=== PATIENT | female | born 1955 | race Caucasian/White ===

== ENCOUNTER → 2016-12-15 | Outpatient (CLI) | payer OTHER ==
[~2016-12-15] MED LIST: CALC1TAB PO; GLUC1TAB21 PO; LISI-167 PO; OMEP-110 PO; RISE30TA PO; VENL75TA PO
== END | disposition home or self-care (01) ==
LOC: CFH 08:46
PROVIDERS: ATTEND Physician Assistant
DX: K74.69 Other cirrhosis of liver (principal)
CPT/HCPCS: 76705

== ENCOUNTER → 2017-06-29 | Outpatient (CLI) | payer OTHER | END | disposition home or self-care (01) | LOC: RAD 07:23 | PROVIDERS: ATTEND Physician Assistant | DX: K74.69 Other cirrhosis of liver (principal) | CPT/HCPCS: 76705 ==

== ENCOUNTER → 2017-09-26 | Outpatient (CLI) | payer OTHER ==
[~2017-09-26] MED LIST changes: +GADOXETATE DISODIUM 2.5 MMOL/10 ML ONE
== END | disposition home or self-care (01) ==
LOC: CFH 09:28
PROVIDERS: ATTEND Physician Assistant
DX: I85.00 Esophageal varices without bleeding (principal); K74.69 Other cirrhosis of liver; N28.89 Other specified disorders of kidney and ureter; R16.1 Splenomegaly, not elsewhere classified
CPT/HCPCS: 74183; A9581

== ENCOUNTER 2017-11-11 21:54 | Inpatient (IN) | payer OTHER ==
[~2017-11-11] VITALS: Ht 172.7 cm; Wt 108.8 kg
[~2017-11-11 21:54] MED LIST changes: -GADOXETATE DISODIUM 2.5 MMOL/10 ML ONE
[2017-11-11 23:09] LABS: ALANINE AMINOTRANSFERASE 54 U/L (12-78); ALBUMIN 1.4 g/dL (3.4-5.0); ANION GAP 6 mmol/L (5-15); CALCIUM 8.2 mg/dL (8.5-10.1); CHLORIDE 104 mmol/L (98-107); CREATININE 1.36 mg/dL (0.55-1.02)
[2017-11-11 23:11] LABS: ALKALINE PHOSPHATASE 237 U/L (45-117); BILIRUBIN,TOTAL 7.6 mg/dL (0.2-1.0); TOTAL PROTEIN 6.1 g/dL (6.4-8.2)
[2017-11-11 23:15] LABS: INTERNATIONAL NORMALIZED RATIO 1.68 (0.93-1.1); PROTHROMBIN TIME 17.3 Seconds (9.6-11.5)
[2017-11-11 23:26] LABS: BASOPHILS # (AUTO) 0.05 x10^3/uL (0-0.1); BASOPHILS % (AUTO) 1 % (0-1); EOSINOPHILS # (AUTO) 0.06 x10^3/uL (0-0.4); EOSINOPHILS % (AUTO) 2 % (1-7); LYMPHOCYTES # (AUTO) 0.51 x10^3/uL (1-3.4); LYMPHOCYTES % (AUTO) 13 % (22-44); MD SCAN; MEAN CORPUSCULAR HEMOGLOBIN 32.4 pg (27.0-34.8); MEAN CORPUSCULAR HGB CONC 34.2 g/dL (32.4-35.8); MEAN CORPUSCULAR VOLUME 94.9 fL (80-100); MEAN PLATELET VOLUME 7.9 fL (7.4-10.4); MONOCYTES # (AUTO) 0.27 x10^3/uL (0.2-0.8); MONOCYTES % (AUTO) 7 % (2-9); NEUTROPHILS # (AUTO) 3.17 x10^3/uL (1.8-6.8); NEUTROPHILS % (AUTO) 78 % (42-75); PLATELET COUNT 168 x10^3/uL (130-400); RED BLOOD COUNT 3.44 x10^6/uL (3.82-5.3); RED CELL DISTRIBUTION WIDTH 19.3 % (9.6-15.2)
[2017-11-12] MEDS ORDERED: OMNIPAQUE 350 MG/ML, 100ML BOTTLE ONE (00:10)
[2017-11-12] MEDS: SODIUM CHLORIDE 0.9% 1,000 ML IV SCH ×2 (00:42→15:13)
[2017-11-12] MEDS ORDERED: LEVO25TA4 PO (00:48)
[2017-11-12] MEDS ORDERED: FURO-93 PO (00:48)
[2017-11-12] MEDS ORDERED: IRON15TA3 PO (00:48)
[2017-11-12] MEDS ORDERED: BISACODYL 10 MG SUPP PR PRN (01:00)
[2017-11-12] MEDS ORDERED: RISEDRONATE 30 MG PO SCH (01:00)
[2017-11-12] MEDS ORDERED: ONDANSETRON 2MG/ML, 2ML IVPush PRN (01:00)
[2017-11-12] MEDS ORDERED: POLYETHYLENE GLYCOL 17 GM PACKET PO PRN (01:00)
[2017-11-12 01:20] VITALS: BP 106/74
[2017-11-12] MEDS ORDERED: MORPHINE SULFATE 4 MG/ML, 1ML IVPush PRN (02:00)
[2017-11-12] MEDS ORDERED: OXYcodone IR 5MG TABLET PO PRN (02:00)
[2017-11-12 05:45] LABS: ALBUMIN 1.3 g/dL (3.4-5.0); ANION GAP 7 mmol/L (5-15); CALCIUM 7.9 mg/dL (8.5-10.1); CHLORIDE 105 mmol/L (98-107)
[2017-11-12 05:49] LABS: ALANINE AMINOTRANSFERASE 51 U/L (12-78); ALKALINE PHOSPHATASE 226 U/L (45-117); BILIRUBIN,TOTAL 6.9 mg/dL (0.2-1.0); TOTAL PROTEIN 5.4 g/dL (6.4-8.2)
[2017-11-12 06:14] LABS: MD YES; MEAN CORPUSCULAR HEMOGLOBIN 32.9 pg (27.0-34.8); MEAN CORPUSCULAR HGB CONC 34.1 g/dL (32.4-35.8); MEAN CORPUSCULAR VOLUME 96.7 fL (80-100); MEAN PLATELET VOLUME 7.9 fL (7.4-10.4); PLATELET COUNT 162 x10^3/uL (130-400); RED BLOOD COUNT 3.41 x10^6/uL (3.82-5.3); RED CELL DISTRIBUTION WIDTH 19.2 % (9.6-15.2)
[2017-11-12 06:24] LABS: LYMPH#(MANUAL) 0.16 x10^3/uL (1-3.4); LYMPHS% (MANUAL) 4 % (22-44); MONOS#(MANUAL) 0.08 x10^3/uL (0.3-2.7); MONOS% (MANUAL) 2 % (2-9); SEG#(MANUAL) 3.85 x10^3/uL (1.8-6.8); SEGS% (MANUAL) 94 % (42-75)
[2017-11-12 06:26] LABS: <PLATELET ESTIMATE> ADEQUATE; <PLT MORPHOLOGY> NORMAL PLT MORPH; <RBC MORPHOLOGY> NORMAL
[2017-11-12 07:17] VITALS: BP 96/57
[2017-11-12] MEDS: RISEDRONATE MC SCH ×2 (08:00→15:59)
[2017-11-12] MEDS: OMEPRAZOLE 20 MG CAPSULE.DR PO SCH (08:27)
[2017-11-12] MEDS: CALCIUM/VITAMIN D3 250-125 TABLET PO SCH (08:28)
[2017-11-12] MEDS: LISINOPRIL 10 MG TABLET PO SCH ×2 (08:28→08:41)
[2017-11-12] MEDS: SENNA/DOCUSATE TABLET PO SCH (08:29)
[2017-11-12] MEDS ORDERED: VENLAFAXINE 75MG TABLET PO SCH (09:00)
[2017-11-12 14:30] VITALS: BP 105/63
[2017-11-12 18:40] VITALS: BP 100/71
[2017-11-13 01:52] VITALS: BP 99/66
[2017-11-13] MEDS: SODIUM CHLORIDE 0.9% 1,000 ML IV SCH (03:12)
[2017-11-13 03:48] LABS: ALBUMIN 1.3 g/dL (3.4-5.0); ANION GAP 6 mmol/L (5-15); CALCIUM 7.6 mg/dL (8.5-10.1); CHLORIDE 103 mmol/L (98-107)
[2017-11-13 03:51] LABS: ALANINE AMINOTRANSFERASE 47 U/L (12-78); ALKALINE PHOSPHATASE 131 U/L (45-117); BILIRUBIN,TOTAL 8.3 mg/dL (0.2-1.0); TOTAL PROTEIN 5.2 g/dL (6.4-8.2)
[2017-11-13 08:24] VITALS: BP 103/67
[2017-11-13] MEDS: CALCIUM/VITAMIN D3 250-125 TABLET PO SCH (08:40)
[2017-11-13] MEDS: OMEPRAZOLE 20 MG CAPSULE.DR PO SCH (08:40)
[2017-11-13] MEDS: SENNA/DOCUSATE TABLET PO SCH (08:41)
[2017-11-13] MEDS: VENLAFAXINE 75MG TABLET PO SCH (08:43)
[2017-11-13 11:45] LABS: INTERNATIONAL NORMALIZED RATIO 1.7 (0.93-1.1); PROTHROMBIN TIME 17.3 Seconds (9.6-11.5)
[2017-11-13 13:52] VITALS: BP 103/71
[2017-11-13 14:24] LABS: ALBUMIN 1.3 g/dL (3.4-5.0); ANION GAP 9 mmol/L (5-15); CALCIUM 7.7 mg/dL (8.5-10.1); CHLORIDE 102 mmol/L (98-107); CREATININE 1.28 mg/dL (0.55-1.02)
[2017-11-13] MEDS ORDERED: SODIUM BICARBONATE 8.4% 75 MEQ in DEXTROSE 5% 1,000 ML IV SCH (15:30)
[2017-11-13 20:20] VITALS: BP 98/67
[2017-11-13 23:48] LABS: CULTURE INDICATED? YES; MICROSCOPIC INDICATED
[2017-11-13 23:49] LABS: POTASSIUM,URINE RANDOM 33 mmol/L; SODIUM,URINE RANDOM 6 mmol/L
[2017-11-14 00:05] LABS: CHLORIDE,URINE RANDOM < 10 mmol/L
[2017-11-14] MEDS ORDERED: SODIUM CHLORIDE 0.9% 1,000 ML IV SCH ×3 (00:32)
[2017-11-14 01:53] VITALS: BP 94/62
[2017-11-14] MEDS ORDERED: ALBUMIN HUMAN 25% 50 ML IV ONE (07:30)
[2017-11-14 08:04] VITALS: BP 107/73
[2017-11-14] MEDS: SENNA/DOCUSATE TABLET PO SCH (08:51)
[2017-11-14] MEDS: OMEPRAZOLE 20 MG CAPSULE.DR PO SCH (08:51)
[2017-11-14] MEDS: CALCIUM/VITAMIN D3 250-125 TABLET PO SCH (08:51)
[2017-11-14] MEDS: VENLAFAXINE 75MG TABLET PO SCH (08:51)
[2017-11-14 08:57] LABS: ALANINE AMINOTRANSFERASE 52 U/L (12-78); ALBUMIN 1.4 g/dL (3.4-5.0); ANION GAP 9 mmol/L (5-15); CALCIUM 7.8 mg/dL (8.5-10.1); CHLORIDE 101 mmol/L (98-107); CREATININE 1.46 mg/dL (0.55-1.02)
[2017-11-14 09:00] LABS: ALKALINE PHOSPHATASE 120 U/L (45-117); TOTAL PROTEIN 5.8 g/dL (6.4-8.2)
[2017-11-14 09:58] LABS: OSMOLALITY,URINE 468 mOsm/kg (500-850)
[2017-11-14 12:33] LABS: ALANINE AMINOTRANSFERASE 49 U/L (12-78); ALBUMIN 1.3 g/dL (3.4-5.0); ANION GAP 8 mmol/L (5-15); BILIRUBIN, DIRECT 6.7 mg/dL (0.1-0.2); BILIRUBIN,INDIRECT 1.7 mg/dL (0.0-2.0); BILIRUBIN,TOTAL 8.4 mg/dL (0.2-1.0); CALCIUM 7.9 mg/dL (8.5-10.1); CHLORIDE 102 mmol/L (98-107); CREATININE 1.38 mg/dL (0.55-1.02)
[2017-11-14 12:35] LABS: ALKALINE PHOSPHATASE 118 U/L (45-117); BILIRUBIN,TOTAL 8.4 mg/dL (0.2-1.0); TOTAL PROTEIN 5.6 g/dL (6.4-8.2)
[2017-11-14] MEDS: CEFTRIAXONE 2 GM in SODIUM CHLORIDE 0.9% 50 ML IV SCH (12:40)
[2017-11-14 13:17] VITALS: BP 99/66
[2017-11-14] MEDS: ALBUMIN HUMAN 25% 100 ML IV SCH ×2 (17:26→22:54)
[2017-11-14 19:03] VITALS: BP 96/65
[2017-11-15] VITALS (7 sets, daily range): BP systolic 90–114; BP diastolic 54–74
[2017-11-15 02:04] LABS: MICROSCOPIC INDICATED
[2017-11-15] MEDS: ALBUMIN HUMAN 25% 100 ML IV SCH ×2 (05:11→11:51)
[2017-11-15] MEDS: VENLAFAXINE 75MG TABLET PO SCH (09:00)
[2017-11-15] MEDS: SENNA/DOCUSATE TABLET PO SCH (09:00)
[2017-11-15 09:08] LABS: ALANINE AMINOTRANSFERASE 42 U/L (12-78); ALBUMIN 2.2 g/dL (3.4-5.0); ANION GAP 10 mmol/L (5-15); CALCIUM 7.9 mg/dL (8.5-10.1); CHLORIDE 102 mmol/L (98-107)
[2017-11-15 09:11] LABS: ALKALINE PHOSPHATASE 106 U/L (45-117); BILIRUBIN,TOTAL 8.2 mg/dL (0.2-1.0); CREATININE 1.29 mg/dL (0.55-1.02); TOTAL PROTEIN 5.6 g/dL (6.4-8.2)
[2017-11-15 09:14] LABS: INTERNATIONAL NORMALIZED RATIO 1.77 (0.93-1.1)
[2017-11-15] MEDS ORDERED: ALBUTEROL/IPRATROPIUM 2.5MG/0.5MG, 3 ML ONE (09:20)
[2017-11-15] MEDS: ALBUTEROL/IPRATROPIUM 2.5MG/0.5MG, 3 ML NPPB PRN (09:26)
[2017-11-15] MEDS: CALCIUM/VITAMIN D3 250-125 TABLET PO SCH (09:52)
[2017-11-15 10:50] LABS: D-DIMER (DIC) 10.67 ug/mlFEU (0.00-0.52)
[2017-11-15 11:03] LABS: MD YES; MEAN CORPUSCULAR HEMOGLOBIN 33.4 pg (27.0-34.8); MEAN CORPUSCULAR HGB CONC 35.3 g/dL (32.4-35.8); MEAN CORPUSCULAR VOLUME 94.8 fL (80-100); MEAN PLATELET VOLUME 7.6 fL (7.4-10.4); PLATELET COUNT 177 x10^3/uL (130-400); RED CELL DISTRIBUTION WIDTH 18.6 % (9.6-15.2)
[2017-11-15 11:11] LABS: <PLATELET ESTIMATE> ADEQUATE; <PLT MORPHOLOGY> NORMAL PLT MORPH; ANISOCYTOSIS 1+; BAND#(MANUAL) 0.06 x10^3/uL; BANDS%(MANUAL) 2 % (0-7); EOS#(MANUAL) 0.06 x10^3/uL (0.0-0.4); EOS% (MANUAL) 2 % (1-7); LYMPH#(MANUAL) 0.17 x10^3/uL (1-3.4); LYMPHS% (MANUAL) 6 % (22-44); PMNS WITH VACUOLES 2+; SEG#(MANUAL) 2.52 x10^3/uL (1.8-6.8); SEGS% (MANUAL) 90 % (42-75); TOXIC GRAN 1+
[2017-11-15 11:12] LABS: POLYCHROMASIA 1+
[2017-11-15] MEDS: ALBUTEROL/IPRATROPIUM 2.5MG/0.5MG, 3 ML NPPB SCH ×3 (12:00→20:43)
[2017-11-15] MEDS: CEFTRIAXONE 2 GM in SODIUM CHLORIDE 0.9% 50 ML IV SCH (13:01)
[2017-11-15] MEDS: MIDODRINE 5 MG TABLET PO SCH ×3 (13:02→21:41)
[2017-11-15] MEDS ORDERED: FUROSEMIDE 40 MG/4 ML IV ONE (14:00)
[2017-11-15 18:17] LABS: CREATININE,URINE RANDOM 24.2 mg/dL
[2017-11-16 01:49] VITALS: BP 98/64
[2017-11-16 05:34] LABS: ALBUMIN 1.9 g/dL (3.4-5.0); ANION GAP 7 mmol/L (5-15); CALCIUM 7.7 mg/dL (8.5-10.1); CHLORIDE 104 mmol/L (98-107)
[2017-11-16 05:37] LABS: ALANINE AMINOTRANSFERASE 40 U/L (12-78); ALKALINE PHOSPHATASE 97 U/L (45-117); BILIRUBIN,TOTAL 7.3 mg/dL (0.2-1.0); CREATININE 1.23 mg/dL (0.55-1.02); TOTAL PROTEIN 5.2 g/dL (6.4-8.2)
[2017-11-16 05:53] LABS: MEAN CORPUSCULAR HEMOGLOBIN 32.8 pg (27.0-34.8); MEAN CORPUSCULAR HGB CONC 34.4 g/dL (32.4-35.8); MEAN CORPUSCULAR VOLUME 95.2 fL (80-100); PLATELET COUNT 97 x10^3/uL (130-400); RED BLOOD COUNT 2.84 x10^6/uL (3.82-5.3); RED CELL DISTRIBUTION WIDTH 18.4 % (9.6-15.2)
[2017-11-16 06:02] LABS: MD YES
[2017-11-16 06:06] LABS: ANISOCYTOSIS 1+; BASOS#(MANUAL) 0.03 x10^3/uL (0-0.1); BASOS% (MANUAL) 2 % (0-1); EOS#(MANUAL) 0.03 x10^3/uL (0.0-0.4); EOS% (MANUAL) 2 % (1-7); LYMPH#(MANUAL) 0.18 x10^3/uL (1-3.4); LYMPHS% (MANUAL) 12 % (22-44); MONOS#(MANUAL) 0.15 x10^3/uL (0.3-2.7); MONOS% (MANUAL) 10 % (2-9); SEG#(MANUAL) 1.11 x10^3/uL (1.8-6.8); SEGS% (MANUAL) 74 % (42-75)
[2017-11-16 06:07] LABS: POLYCHROMASIA 1+
[2017-11-16 06:08] LABS: <PLATELET ESTIMATE> DECREASED; <PLT MORPHOLOGY> NORMAL PLT MORPH
[2017-11-16] MEDS: ALBUTEROL/IPRATROPIUM 2.5MG/0.5MG, 3 ML NPPB SCH ×4 (07:05→20:00)
[2017-11-16 07:45] VITALS: BP 99/68
[2017-11-16] MEDS: SENNA/DOCUSATE TABLET PO SCH (09:00)
[2017-11-16] MEDS: MIDODRINE 5 MG TABLET PO SCH ×3 (09:23→21:43)
[2017-11-16] MEDS: VENLAFAXINE 75MG TABLET PO SCH (09:23)
[2017-11-16] MEDS: CALCIUM/VITAMIN D3 250-125 TABLET PO SCH (09:23)
[2017-11-16] MEDS ORDERED: MIDODRINE 5 MG TABLET PO SCH (09:30)
[2017-11-16] MEDS: CEFTRIAXONE 2 GM in SODIUM CHLORIDE 0.9% 50 ML IV SCH (12:46)
[2017-11-16] MEDS: FUROSEMIDE 40 MG/4 ML IV SCH ×2 (12:46→21:00)
[2017-11-16 13:57] VITALS: BP 93/67
[2017-11-16 19:41] VITALS: BP 93/55
[2017-11-17 01:51] VITALS: BP 113/76
[2017-11-17 06:14] LABS: INTERNATIONAL NORMALIZED RATIO 1.76 (0.93-1.1); PROTHROMBIN TIME 18.1 Seconds (9.6-11.5)
[2017-11-17 06:15] LABS: ALANINE AMINOTRANSFERASE 41 U/L (12-78); ALBUMIN 1.8 g/dL (3.4-5.0); ANION GAP 5 mmol/L (5-15); CHLORIDE 109 mmol/L (98-107)
[2017-11-17 06:17] LABS: ALKALINE PHOSPHATASE 145 U/L (45-117); BILIRUBIN,TOTAL 7.1 mg/dL (0.2-1.0); TOTAL PROTEIN 5.4 g/dL (6.4-8.2)
[2017-11-17] MEDS ORDERED: RISEDRONATE 30 MG PO SCH (06:30)
[2017-11-17 07:08] LABS: MEAN CORPUSCULAR HEMOGLOBIN 31.9 pg (27.0-34.8); MEAN CORPUSCULAR HGB CONC 33.8 g/dL (32.4-35.8); MEAN CORPUSCULAR VOLUME 94.3 fL (80-100); RED BLOOD COUNT 3.02 x10^6/uL (3.82-5.3); RED CELL DISTRIBUTION WIDTH 19.1 % (9.6-15.2)
[2017-11-17 07:09] LABS: MEAN PLATELET VOLUME 7.3 fL (7.4-10.4); PLATELET COUNT 75 x10^3/uL (130-400)
[2017-11-17 07:20] VITALS: BP 116/77
[2017-11-17 07:43] LABS: BASOPHILS # (AUTO) 0.04 x10^3/uL (0-0.1); BASOPHILS % (AUTO) 2 % (0-1); EOSINOPHILS # (AUTO) 0.06 x10^3/uL (0-0.4); EOSINOPHILS % (AUTO) 3 % (1-7); LYMPHOCYTES # (AUTO) 0.37 x10^3/uL (1-3.4); LYMPHOCYTES % (AUTO) 19 % (22-44); MD SCAN; MONOCYTES # (AUTO) 0.14 x10^3/uL (0.2-0.8); MONOCYTES % (AUTO) 7 % (2-9); NEUTROPHILS # (AUTO) 1.37 x10^3/uL (1.8-6.8); NEUTROPHILS % (AUTO) 70 % (42-75)
[2017-11-17] MEDS: FUROSEMIDE 40 MG/4 ML IV SCH ×2 (07:43→17:00)
[2017-11-17 09:32] VITALS: BP 117/83
[2017-11-17] MEDS: MIDODRINE 5 MG TABLET PO SCH ×3 (09:41→20:03)
[2017-11-17] MEDS: SENNA/DOCUSATE TABLET PO SCH (09:41)
[2017-11-17] MEDS: VENLAFAXINE 75MG TABLET PO SCH (09:41)
[2017-11-17] MEDS: CALCIUM/VITAMIN D3 250-125 TABLET PO SCH (09:41)
[2017-11-17] MEDS: CEFTRIAXONE 2 GM in SODIUM CHLORIDE 0.9% 50 ML IV SCH (12:33)
[2017-11-17 15:25] VITALS: BP 118/69
[2017-11-17 16:48] VITALS: BP 110/76
[2017-11-17] MEDS: ALBUTEROL/IPRATROPIUM 2.5MG/0.5MG, 3 ML NPPB PRN (20:24)
[2017-11-17 20:40] VITALS: BP 116/74
[2017-11-18] VITALS (7 sets, daily range): BP systolic 99–122; BP diastolic 64–88
[2017-11-18 05:39] LABS: CHLORIDE 104 mmol/L (98-107)
[2017-11-18 05:49] LABS: ALANINE AMINOTRANSFERASE 45 U/L (12-78); ALBUMIN 1.9 g/dL (3.4-5.0); ALKALINE PHOSPHATASE 141 U/L (45-117); ANION GAP 8 mmol/L (5-15); BILIRUBIN,TOTAL 8.1 mg/dL (0.2-1.0); CALCIUM 8.3 mg/dL (8.5-10.1); CREATININE 1.01 mg/dL (0.55-1.02); TOTAL PROTEIN 5.7 g/dL (6.4-8.2)
[2017-11-18] MEDS: FUROSEMIDE 40 MG/4 ML IV SCH ×2 (09:16→17:00)
[2017-11-18] MEDS: CALCIUM/VITAMIN D3 250-125 TABLET PO SCH (09:16)
[2017-11-18] MEDS: VENLAFAXINE 75MG TABLET PO SCH (09:16)
[2017-11-18] MEDS: SENNA/DOCUSATE TABLET PO SCH (09:17)
[2017-11-18] MEDS: CEFTRIAXONE 2 GM in SODIUM CHLORIDE 0.9% 50 ML IV SCH (12:23)
[2017-11-18] MEDS: MIDODRINE 5 MG TABLET PO SCH ×2 (17:33→21:44)
[2017-11-19 01:49] VITALS: BP 110/72
[2017-11-19 05:24] LABS: ALBUMIN 1.8 g/dL (3.4-5.0); ANION GAP 9 mmol/L (5-15); CALCIUM 8.4 mg/dL (8.5-10.1); CHLORIDE 105 mmol/L (98-107)
[2017-11-19 05:29] LABS: ALANINE AMINOTRANSFERASE 37 U/L (12-78); ALKALINE PHOSPHATASE 118 U/L (45-117); CREATININE 1.03 mg/dL (0.55-1.02); TOTAL PROTEIN 5.3 g/dL (6.4-8.2)
[2017-11-19 06:39] VITALS: BP 111/76
[2017-11-19] MEDS: FUROSEMIDE 40 MG/4 ML IV SCH (09:18)
[2017-11-19] MEDS: VENLAFAXINE 75MG TABLET PO SCH (09:19)
[2017-11-19] MEDS: CALCIUM/VITAMIN D3 250-125 TABLET PO SCH (09:19)
[2017-11-19] MEDS: SENNA/DOCUSATE TABLET PO SCH (09:19)
[2017-11-19] MEDS: MIDODRINE 5 MG TABLET PO SCH (09:19)
[2017-11-19] MEDS: CEFTRIAXONE 2 GM in SODIUM CHLORIDE 0.9% 50 ML IV SCH (12:18)
[2017-11-19 12:21] VITALS: BP 118/79
[2017-11-19] MEDS ORDERED: IPRA3AMP30 NPPB (12:45)
== END 2017-11-19 14:15 | disposition hospice, inpatient (51) | DRG 441 ==
LOC: ED 22:10 → EDIP 11-12 00:32 → 4WST 11-12 01:10 → 3NW 11-12 10:45 → 4WST 11-15 11:05
PROVIDERS: ADMIT Internal Medicine; ATTEND Internal Medicine
PROC: 0W9G3ZZ Drainage of Peritoneal Cavity, Percutaneous Approach (ICD-10-PCS; principal; 2017-11-12)
DX: K72.00 Acute and subacute hepatic failure without coma (principal); J96.01 Acute respiratory failure with hypoxia; E43 Unspecified severe protein-calorie malnutrition; N17.0 Acute kidney failure with tubular necrosis; C22.0 Liver cell carcinoma; R18.8 Other ascites; D68.9 Coagulation defect, unspecified; D61.818 Other pancytopenia; E87.1 Hypo-osmolality and hyponatremia; K76.6 Portal hypertension; I85.10 Secondary esophageal varices without bleeding; Z51.5 Encounter for palliative care; I95.9 Hypotension, unspecified; I50.9 Heart failure, unspecified; R23.3 Spontaneous ecchymoses; I11.0 Hypertensive heart disease with heart failure; I87.8 Other specified disorders of veins; B18.2 Chronic viral hepatitis C; R00.0 Tachycardia, unspecified; Z66 Do not resuscitate; R16.1 Splenomegaly, not elsewhere classified; I27.20 Pulmonary hypertension, unspecified; K74.3 Primary biliary cirrhosis; F32.9 Major depressive disorder, single episode, unspecified; M81.0 Age-related osteoporosis without current pathological fracture; N93.9 Abnormal uterine and vaginal bleeding, unspecified; R49.0 Dysphonia; N30.90 Cystitis, unspecified without hematuria; D63.8 Anemia in other chronic diseases classified elsewhere; K12.30 Oral mucositis (ulcerative), unspecified; Z68.36 Body mass index [BMI] 36.0-36.9, adult; Z87.891 Personal history of nicotine dependence; Z80.9 Family history of malignant neoplasm, unspecified; Z79.899 Other long term (current) drug therapy
CPT/HCPCS: 36415; 36600; 99285; J7620; 0399T; 49083; 71045; 74177; 76700; 76770; 78582; 80053; 80069; 80074; 81001; 82140; 82247; 82248; 82436; 82570; 82803; 83605; 83690; 83735; 83880; 83935; 84100; 84133; 84156; 84300; 84311; 85025; 85049; 85379; 85384; 85610; 85730; 87040; 87070; 87086; 87205; 87521; 88112; 88305; 89051; 93306; 93970; 94640; G0378; J0696; J1940; P9047; Q9967; A9540; A9558; C9898; J7030